=== PATIENT | male | born 1945 | race Caucasian/White ===

== ENCOUNTER 2022-09-25 16:25 | Outpatient (CLI) | payer OTHER, SELFPAY | END 2022-09-25 16:26 | disposition home or self-care (01) | LOC: AMB 10-03 10:08 | PROVIDERS: PCP Family Medicine; Visit Provider Family Medicine | DX: R53.1 Weakness (principal); F03.90 Unspecified dementia, unspecified severity, without behavioral disturbance, psychotic disturbance, mood disturbance, and anxiety | CPT/HCPCS: A0425; A0427 ==

== ENCOUNTER 2022-09-25 17:00 | Emergency (ER) | payer MEDICARE, SELFPAY ==
[2022-09-25 17:06] VITALS: PULSE 95; RESP 20; TEMP 36.4; O2SAT 94; BMI 30.1
--- NOTE | 2022-09-25 17:38 | ED.FALL ---
HPI - Fall General Time Seen by Provider: 17:39 Date Seen: 09/25/22 Chief Complaint: Fall/Minor Trauma Stated Complaint: Fall Time Seen by Provider: 09/25/22 17:04 Source: patient, family, EMS and RN notes reviewed Mode of arrival: EMS Limitations: altered mental status (Has dementia, cannot meaningfully communicate) History of Present Illness HPI Narrative: Patient is a 77-year-old male that is brought in by EMS from home where he was found down. His had left him for about an hour so, he was resting in chair with his feet up on an auto min. When she came home he was on the carpet. He was awake. She thinks he maybe try to get up and could not do it on his own. She is worried about his left knee. She seems to think that he is complaining of some left knee pain. He does have issues with this left knee, there has been a prior injury years ago and he has received some injections through Orthopedics in this knee prior. He has not been noted to be sick. There has been no fevers, no cough no significant change in his status. She feels that his mentation is baseline. She feels there is no evidence that he hit his head on anything around him, was on a carpeted floor. Sounds as if his dementia is progressing and he is starting to eat less. They do not go out much. She does not think 3rd there would be a chance of COVID or influenza, have been fully vaccinated for these. complaint: fall Related Data Allergies Allergy/AdvReac Type Severity Reaction Status Date / Time No Known Drug Allergies Allergy Verified 09/25/22 17:06 Review of Systems Narrative: As obtained per the . Patient really cannot give me a meaningful review of systems. PFSH [facility] Social History Smoking Status: Never smoker Do you use any of these nicotine containing products: None Second hand tobacco smoke exposure: No How often do you have a drink containing alcohol: never How often do you have six or more drinks on one occasion: Never AUDIT-C Alcohol total score: 0 Non-prescribed substance use: denies use service: No Exam Const: Vital Signs, click to edit/add: Vital Signs - 24 hr 09/25/22 17:06 09/25/22 19:00 Temperature 97.5 F L Pulse Rate [Pulse Oximeter] 95 88 Respiratory Rate 20 18 Blood Pressure [Ri ght Forearm] 117/93 H Pulse Oximetry 94 94 Oxygen Delivery Me thod Room Air Room Air Patient is lying in bed, looks comfortable. Does copy an occasional word I say but otherwise is not communicative with meaningful speech. Is alert. Documenting provider has reviewed patient's vital signs: yes Common normals: no apparent distress, average body habitus and alert General appearance: cooperative and comfortable HENMT: Common normals: normocephalic, head/scalp atraumatic, hearing grossly normal bilaterally, external ears normal, external nose normal, nasal mucous membranes and turbinates normal, moist oral mucous membranes and oropharynx normal Head and scalp: normocephalic and atraumatic Nose: external nose normal and nasal mucous membranes and turbinates normal External ear: external ears normal Eye: Common normals: PERRL, EOMs intact bilaterally, conjunctivae normal and no scleral icterus Conjunctiva: conjunctiva(e) normal Pupil: PERRL Neck & C-Spine: Other: Does not seem uncomfortable when I palpate his neck. Do see him move his neck in the room. There is no palpable masses, no thyromegaly masses or nodules. Chest: Common normals: palpation of chest normal Resp: Common normals: normal respiratory effort, no retractions, no use of accessory muscles and clear to auscultation bilaterally Auscultation: clear to auscultation bilaterally Cardio: Common normals: regular rate, regular rhythm, S1 normal heart sound, S2 normal heart sound, no gallops, no clicks and no murmurs Rate: regular rate Rhythm: regular rhythm Heart sounds: S1 normal and S2 normal GI: Common normals: Normal to inspection, nondistended, normoactive bowel sounds present, soft to palpation, non-tender and no hepatosplenomegaly Palpation: soft and no hepatosplenomegaly Extremity: Other: See him move his extremities, particularly arms. The left knee has a bit of an effusion but there is no abraded area, no wounds. He has medial joint line tenderness when I palpate and does state ?ouch? when I touch in that area. I can repeat this on clinical examination. He does not complain of pain elsewhere on his lower extremities, see no evidence of any wounds. Has trace pretibial edema of his lower tibias, seems to be symmetric. No pain with leg roll on either side. Neuro: Sensorium/orientation: alert Course Course Hospital Course: Discussed neuro imaging with his . She does not feel he needs this. I would tend to support that from the history that is provided to me and her observation that he seems to be at baseline. She would like an x-ray of his knee and I think that is reasonable. As far as laboratory evaluation, we did discuss this. She would like to proceed. I think doing some screening labs would be reasonable. If he can give us urinalysis while here we will collect it but do not feel without a fever any focal changes and his vitals that we need to do a catheterized specimen at this point. Reevaluation(s) Reevaluation #1: Reviewed his x-ray showing significant arthritis. It may be time to have him go back to the orthopedist or see if the primary care provider would be willing to do a knee injection if sufficient time has passed since the last 1. They were unfortunately unable to get blood, lab tried multiple times. His feels that he is really stable, does not feel that we necessarily need to do this. They have been here 2 hours already, the reality is if we do labs it will likely be another to if not more hours before we have results. We still do not even have blood drawn from him. She will watch him at home and she understands that if she is really seen a change in his status, that she can call the ambulance for re-evaluation. She does have an appointment for him in clinic this coming Tuesday. I did talk to her about asking his primary care provider about services that they could get in the house maybe to help her where she can safely leave him for period of time. Time: 19:10 Vital Signs Vital signs: Initial Vital Signs Temperature 97.5 F L 09/25/22 17:06 Temperature Source Temporal Artery Scan 09/25/22 17:06 Pulse Rate 95 09/25/22 17:06 Pulse Rhythm 09/25/22 17:06 Respiratory Rate 20 09/25/22 17:06 Blood Pressure Position Supine 09/25/22 17:06 Pulse Oximetry 94 09/25/22 17:06 Oxygen Delivery Method 09/25/22 17:06 Vital Signs Temperature 97.5 F L 09/25/22 17:06 Pulse Rate 95 09/25/22 17:06 Respiratory Rate 20 09/25/22 17:06 Pulse Oximetry 94 09/25/22 17:06 Oxygen Delivery Method 09/25/22 17:06 Temperature 97.5 F L 09/25/22 17:06 Pulse Rate 88 09/25/22 19:00 Respiratory Rate 18 09/25/22 19:00 Blood Pressure 117/93 H 09/25/22 19:00 Pulse Oximetry 94 09/25/22 19:00 Oxygen Delivery Method 09/25/22 19:00 MDM - Fall Imaging Data X-ray left knee: Attestation: I have reviewed the pertinent imaging results. My impression: Do not appreciate any acute fracture on this x-ray, there is arthritis. Radiologist's impression: Patient: JAJA MORENO Facility:?[facility] Patient ID:?[id number] Site Patient ID:?[id number]. Site :?[id number] Study:?XRay Knee Left 2V-09/25/2022 6:08:46 PM Ordering Physician:Lali Kumar Final Report: INDICATION: Knee pain. TECHNIQUE: Knee radiographs 3 views COMPARISON: Comparison study dated 11/15/2013 FINDINGS: No acute fracture or bony lesion. Severe left knee osteoarthritis with near complete loss of the lateral joint space. Small joint effusion in the suprapatellar recess. Distal quadriceps tendon and patellar tendon unremarkable. 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 No prepatellar soft tissue swelling. IMPRESSION: 1. Severe left knee osteoarthritis with small left knee joint effusion. No acute osseous injury identified. Dictated by Mg Rodriguez MD @ 09/25/2022 6:50:14 PM Dictated by: Mg Rodriguez MD @ 09/25/2022 18:50:23 (Electronic Signature) Critical Care Time Critical Care Time Critical Care Time: No Discharge Plan Discharge Clinical Impression: Knee pain, left, Osteoarthritis of left knee, Fall Condition: Stable Instructions: Osteoarthritis (ED) Additional Instructions: Would recommend trying some Tylenol per bottle directions for some relief of discomfort. I would give him some tonight and perhaps tomorrow morning. Tylenol can be used for pain management. Keep the scheduled appointment with his primary care provider for Tuesday. Discuss with the primary care provider possible in-home services for him, services that may be available so that you can safely leave him at home. In the meantime, if you have concerns about change in his status, feel that there is something clinically wrong with him, can return to the ER for further evaluation. Follow Up/Referrals: True Mojica MD [Primary Care Provider] - Stand Alone Forms: [employer] Info Instructions
--- NOTE | 2022-09-25 17:46 | CRLHL7_ITS ---
For Patients: As a result of the Cures Act, medical imaging exams and procedure reports are released immediately into your electronic medical record. You may view this report before your referring provider. If you have questions, please contact your health care provider. INDICATION: Knee pain. TECHNIQUE: Knee radiographs 3 views COMPARISON: Comparison study dated 11/15/2013 FINDINGS: No acute fracture or bony lesion. Severe left knee osteoarthritis with near complete loss of the lateral joint space. Small joint effusion in the suprapatellar recess. Distal quadriceps tendon and patellar tendon unremarkable. 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 No prepatellar soft tissue swelling. IMPRESSION: 1. Severe left knee osteoarthritis with small left knee joint effusion. No acute osseous injury identified. Dictated by Mg Rodriguez MD @ 09/25/2022 6:50:14 PM Dictated by: Mg Rodriguez MD @ 09/25/2022 18:50:23 (Electronically Signed)
[2022-09-25 19:00] VITALS: BP 117/93; PULSE 88; RESP 18; O2SAT 94
== END 2022-09-25 19:39 | disposition home or self-care (01) ==
PROVIDERS: Emergency Provider Family Medicine; PCP Family Medicine
DX: M17.12 Unilateral primary osteoarthritis, left knee (principal); W19.XXXA Unspecified fall, initial encounter
CPT/HCPCS: 73560; 80053; 84484; 85025; 99283; 99284